=== PATIENT | male | born 1965 | race African-American/Black ===

== ENCOUNTER 2021-01-29 19:55 | Emergency (ER) | payer OTHER, SELFPAY ==
--- NOTE | ~2021-01-29 | CT_ITS ---
EXAMINATION: CT abdomen pelvis wo con DATE: 01/29/2021 22:18 INDICATION: Lower abdominal pain. Bladder spasms. TECHNIQUE: Computed tomography (CT) of the abdomen and pelvis was performed without intravenous contr ast. Automated exposure control and iterative reconstruction technique were employed. Exam dose: 847 .36 mGy-cm total exam DLP. COMPARISON: None. FINDINGS: There is patchy right lower lobe infiltrate and/atelectasis. There is minimal dependent lef t lower lobe atelectasis. Normal heart size. No pericardial or pleural effusion. Approximately 2 cm medial segment left hepatic cyst. Status post cholecystectomy. No bile duct or pancreatic duct dilatation. No pancreatic mass lesion or calcification. Normal splenic size. Normal morphology of the adrenal glands. There are indeterminate left renal masses; hypernephroma is not excluded. Further evaluation by means of CT with IV contrast material or MR examination would be helpful for more definitive evaluation. No urinary tract calculus or hydroureteronephrosis. There is prostate enlargement. There is moderate diffuse thickening of the urinary bladder wall. There is atherosclerotic calcification but no aneurysm of the abdominal aorta or iliac arteries. No intraperitoneal or retroperitoneal or pelvic mass lesion or adenopathy or ascites is detected. There is a right lower quadrant colostomy. No bowel obstruction or intraperitoneal free air is detect ed. Femoral-femoral bypass graft is noted. There are transverse screws through the sacroiliac joints sacrum. Old bilateral acetabular and inferi or pubic ramus fracture deformities and diastases at the pubic symphysis. Bilateral hip osteoarthritis. Old lumbar spine transverse process fractures. Severe degenerative disc disease at L5-S1. Small fat-containing umbilical hernia. IMPRESSION: Indeterminate left renal masses; consider CT examination with IV contrast material or MR imaging for further evaluation to exclude hypernephroma 2 cm left hepatic cyst Status post cholecystectomy Prostate enlargement Femoral-femoral bypass graft Multiple old pelvic fractures, pubic symphysis diastases Severe degenerative disc disease at L5-S1 Bilateral hip osteoarthritis Reviewed, dictated and finalized at [facility] Reviewed, dictated and finalized at [facility]. IMPRESSION: Indeterminate left renal masses; consider CT examination with IV c ontrast material or MR imaging for further evaluation to exclude hypernephroma 2 cm left hepatic cyst Status post cholecystectomy Prostate enlargement Femoral-femoral bypass graft Multiple old pelvic fractures, pubic symphysis diastases Severe degenerative disc disease at L5-S1 Bilateral hip osteoarthritis
[2021-01-29 20:00] VITALS: BP 152/124; PULSE 134; TEMP 36.6; O2SAT 100
[2021-01-29 21:23] VITALS: BP 161/121; PULSE 124; RESP 20; O2SAT 96
--- NOTE | 2021-01-29 21:29 | PC.NURSE ---
EDP Meño at bedside for suprapubic catheter reinsertion.
--- NOTE | 2021-01-29 21:49 | ED.ABDPAIN ---
HPI - Abdominal Pain General Chief Complaint: Urogenital-Male Stated Complaint: bladder spasms and no urine output Time Seen by Provider: 01/29/21 21:19 History of Present Illness HPI narrative: Patient presents with abdominal pain. He has had a pelvic trauma with prolonged rehab he reports he has had reconstructive bladder and has a chronic suprapubic catheter for greater than 1 year. He has intermittent bladder spasms he was at his urologist today they replaced his suprapubic catheter and he was doing well. Approximate hour after replacement he is having increased bladder spasms he also noted that he was no longer draining urine so he came to the ER. On arrival to the ER his suprapubic catheter had fallen out and is continued to have intermittent bladder spasms. Denies fevers, chills, nausea, vomiting Related Data Allergies Allergy/AdvReac Type Severity Reaction Status Date / Time No Known Allergies Allergy Verified 01/29/21 21:33 Review of Systems Review of Systems: CONSTITUTIONAL: Denies fever, chills, or sweats. EYES: Denies visual changes, redness, or discharge. ENT: Denies rhinorrhea, congestion, sore throat, or otalgia. CARDIOVASCULAR: Denies chest pain, palpitations, or edema. RESPIRATORY: Denies cough or dyspnea. GASTROINTESTINAL: Denies nausea, vomiting, or diarrhea. GENITOURINARY: Denies dysuria or hematuria. SKIN: Denies rash or itching. MUSCULOSKELETAL: Denies back pain, joint pain, or myalgia. NEUROLOGIC: Denies headache, numbness, dizziness, or weakness. PSYCHIATRIC: Denies anxiety or depression. All systems reviewed & are unremarkable except as noted in HPI and below Exam Narrative: GENERAL: Well-appearing, well-nourished, in mild distress due to pain HEAD: Normocephalic, atraumatic. EYES: PERRLA and EOMI. ENT: Nares clear, no rhinorrhea or epistaxis. Mucous membranes moist. NECK: Supple. No masses. No JVD ABDOMEN: Moderate tenderness palpation in the suprapubic area soft, nondistended, colostomy in place EXTREMITIES: Normal range of motion. No edema. SKIN: Warm, dry, no rash. NEURO: No focal deficits. Alert and oriented x3. PSYCH: Normal mood and affect. Course Reevaluation(s) Reevaluation #1: Patient reports feeling improved he continues to have lower abdominal pain but reports is at his baseline pain reported large improvement after placement of his suprapubic catheter. Initial labs notable for elevated lactate which resolved with fluids. Patient still continues to have a persistent tachycardia of 120. He reports he always has tachycardia and he feels at his baseline health. He denies any fevers or chills. His UA did appear infectious patient given his initial dose of antibiotics here in the ER discussed inpatient versus outpatient evaluation. Patient would prefer to go home with trial of outpatient antibiotics and follow-up with his care team at [facility]. He declined admission Date: 01/30/21 Time: 02:25 Vital Signs Vital signs: Vital Signs Temperature 36.6 C 01/29/21 20:00 Pulse Rate 134 H 01/29/21 20:00 Blood Pressure 152/124 H 01/29/21 20:00 Pulse Oximetry 100 01/29/21 20:00 Temperature 36.6 C 01/29/21 20:00 Pulse Rate 112 H 01/30/21 01:46 Respiratory Rate 16 01/30/21 01:46 Blood Pressure 130/93 H 01/30/21 01:46 Pulse Oximetry 98 01/30/21 01:46 MDM - Abdominal Pain MDM Narrative Medical decision making narrative: Patient presented with lower abdominal pain and suprapubic catheter issue. Initial attempts at placing suprapubic catheter failed as there was a moderate amount of resistance. Labs imaging obtained. Imaging notable for inflammation around the bladder otherwise there is no acute process. Labs notable for urine that appears infectious however patient may be colonized. With reassuring imaging second attempt made with a daily catheter there was a moderate amount of urine returned and patient reported large improvement in his symptom
[2021-01-29] MEDS: ONDANSETRON INJ 4 MG/2 ML VIAL IV PUSH (22:01)
[2021-01-29] MEDS: HYDROmorphone HCL INJ (*CRX) 1 MG/ML SYR 0.5 MG IV PUSH ×2 (22:02→22:56)
--- NOTE | 2021-01-29 22:05 | PC.NURSE ---
Pt to CT via stretcher at this time.
[2021-01-29 22:09] LABS: Basophils Absolute Auto 0.1 K/mm3 (0.0-0.1); Basophils Percent Auto 0.4 % (0.2-1.2); Eosinophils Absolute Auto 0.2 K/mm3 (0-0.3); Eosinophils Percent Auto 1.4 % (0-4.4); Hematocrit 34.5 % (42.0-52.0); Immature Granulocyte Absolute 0.02 K/mm3 (0.00-0.031); Immature Granulocyte Percent A 0.2 % (0-0.5); Lymphocytes Absolute Auto 2.11 K/mm3 (0.9-3.2); Lymphocytes Percent Auto 18.4 % (18.3-44.2); Mean Corpuscular HGB Conc 31.9 g/dl (32-36); Mean Corpuscular Hemoglobin 29.7 pg (26-34); Mean Corpuscular Volume 93.2 fl (80-100); Mean Platelet Volume 10.4 fl (7.4-10.4); Monocytes Absolute Auto 0.9 K/mm3 (0.1-0.6); Monocytes Percent Auto 7.4 % (2.6-8.5); Neutrophils Absolute Auto 8.3 K/mm3 (1.3-6.7); Neutrophils Percent Auto 72.2 % (45.5-73.1); Platelet Count Result 262 k/mm3 (150-375); Red Cell Distribution Width 13.4 % (11.5-14.5); White Blood Count 11.5 K/mm3 (4.5-10.0)
[2021-01-29 22:17] LABS: Alanine Aminotransferase 37 U/L (4-50); Albumin Level 4.8 g/dL (3.5-5.1); Alkaline Phosphatase 166 U/L (38-126); Anion Gap 14 mmol/L (8-16); Aspartate Amino Transferase 44 U/L (17-59); Bilirubin,Total 1.3 mg/dL (0.2-1.3); Blood Urea Nitrogen 30 mg/dL (9-20); Calcium 10.1 mg/dL (8.4-10.2); Carbon Dioxide 32 mmol/L (22-30); Chloride 93 mmol/L (98-107); Estimated CRCL calculation 14 ml/min; Estimated Glomerular Filt Rate 11; Glucose 129 mg/dL (65-110); Lipase 78 U/L (23-300); Sodium 139 mmol/L (137-145)
[2021-01-29 23:05] VITALS: BP 175/115; PULSE 121; RESP 18; O2SAT 96
--- NOTE | 2021-01-29 23:05 | PC.NURSE ---
EDP at bedside for 2nd reinsertion attempt with coude catheter.
[2021-01-29 23:52] VITALS: PULSE 116; RESP 22; O2SAT 96
[2021-01-30 00:14] LABS: Add Urine Microscopic? YES; Appearance Urine Turbid (Clear); Bilirubin Urine Negative (Negative); Blood Urine 3+ (Negative); Color Urine Blue (Yellow); Glucose Urine UA Negative (Negative); Ketones Urine Negative (Negative); Leukocyte Esterase Ur 2+ LEU/UL (Negative); Nitrate Urine Negative (Negative); Protein Urine 2+ mg/dL (Negative); RBC Urine >75 /hpf (0-2); Specific Grav Ur 1.011 (1.001-1.035); Squamous Epithelial Cell Urine Moderate /hpf (Few); Urobilinogen Urine Negative mg/dL (<2.0); WBC Clumps Urine Present /HPF; WBC Urine >75 /hpf
[2021-01-30] MEDS: HYDROmorphone HCL INJ (*CRX) 1 MG/ML SYR 0.5 MG IV PUSH (00:33)
[2021-01-30] MEDS: SODIUM CHLORIDE 0.9% IV 500 ML 999 ML IV CONT ×2 (00:33→01:46)
[2021-01-30 00:35] VITALS: BP 138/85; PULSE 107; RESP 22; O2SAT 98
[2021-01-30 01:05] LABS: Reflex Lactic Acid Yes or No Add Lactic
[2021-01-30 01:46] VITALS: BP 130/93; PULSE 112; RESP 16; O2SAT 98
[2021-01-30 01:46] LABS: Lactic Acid 1.3 mmol/L (0.7-2.1)
[2021-01-30 02:44] VITALS: BP 154/99; PULSE 108; RESP 14; O2SAT 100
== END 2021-01-30 02:50 | disposition home or self-care (01) ==
PROVIDERS: Emergency Provider Emergency Medicine
DX: T83.021A Displacement of indwelling urethral catheter, initial encounter (principal); N39.0 Urinary tract infection, site not specified; R00.0 Tachycardia, unspecified
CPT/HCPCS: 36415; 74176; 80053; 81001; 83605; 83690; 85025; 87077; 87086; 87088; 87186; 96361; 96365; 96374; 96375; 96376; 99284; J1170; J1956; J2405; J7040